=== PATIENT | male | born 1985 | race Caucasian/White ===

== ENCOUNTER 2018-02-17 01:09 | Emergency (ER) | payer MEDICAID ==
[2018-02-17 01:14] VITALS: BP 141/95
--- NOTE | 2018-02-17 01:15 | EDPHY ---
H & P Stated Complaint: L wrist injury Time Seen by Provider: 02/17/18 01:15 HPI/ROS: HPI CHIEF COMPLAINT: Left hand and left wrist pain. HISTORY OF PRESENT ILLNESS: This is a very pleasant 32-year-old male, denies any significant medical history presents emergency room with left wrist pain and left hand pain. Patient states that he drank alcohol this evening had multiple beers he was at his friend's house his friend had a skateboard he got on the skateboard fell off the skateboard landing on his left hand and left wrist. He has pain over the medial aspect of his left wrist specifically over the distal radius. Denies any other areas of trauma. Denies denies neck pain or headache. Past Medical History: Denies significant medical history Past Surgical History: Denies significant surgical history Social History: Alcohol this evening. Denies other illicit drugs. Family History: Noncontributory ROS REVIEW OF SYSTEMS: A comprehensive 10 point review of systems is otherwise negative aside from elements mentioned in the history of present illness. Exam Constitutional nontoxic. triage nursing summary reviewed, vital signs reviewed , awake/alert. Eyes normal conjunctivae and sclera, EOMI, PERRLA. HENT normal inspection, atraumatic, moist mucus membranes, no epistaxis, neck supple/ no meningismus, no raccoon eyes. Respiratory clear to auscultation bilaterally, normal breath sounds, no respiratory distress, no wheezing. Cardiovascular rate normal, regular rhythm, no murmur, no edema, distal pulses normal. Gastrointestinal soft, non-tender, no rebound, no guarding, normal bowel sounds, no distension, no pulsatile mass. Genitourinary no CVA tenderness. Musculoskeletal left hand/left wrist: Neurovascular intact, good radial pulse. Good cap refill, full range of motion, tender palpation over the distal ulanr tender palpation over the dorsum of the left hand specifically over the 5nd metacarpal. swelling noted. Ecchymosis noted, No open injury. Neurovascular intact good elementary school reading teacher strength. Good cap refill, sensation intact. No signs of compartment syndrome. No scaphoid tenderness. no midline vertebral tenderness, full range of motion, no calf swelling, no tenderness of extremities, no meningismus, good pulses, neurovascularly intact. Skin pink, warm, & dry, no rash, skin atraumatic. Neurologic awake, alert and oriented x 3, AAOx3, moves all 4 extremities equally, motor intact, sensory intact, CN II-XII intact, normal cerebellar, normal vision, normal speech. Psychiatric normal mood/affect. Heme/Lymph/Immune no lymphadenopathy. Differential Diagnosis: Includes but is not limited to in a particular order hand contusion, soft tissue injury, bony abnormality, bony contusion, hand fracture, wrist fracture, wrist sprain Medical Decision Making: Plan for this patient ibuprofen 800 mg for pain control, ice pack, x-ray of the hand and wrist. Re-evaluation: X-rays reviewed of the left wrist and left hand. The x-ray of the left hand shows a fracture of the 5th metacarpal. The x-ray of the left wrist does not show any evidence of acute fracture. Patient need to be splinted and follow up with Hand surgery. Patient be splinted in ulnar gutter splint. He will need to follow up with Hand surgery he understands. Ibuprofen for pain control. Ice and elevation. He understands. Return precautions discussed with him. Source: Patient - Personal History Current Tetanus/Diphtheria Vaccine: Unsure Current Tetanus Diphtheria and Acellular Pertussis (TDAP): Unsure - Medical/Surgical History Hx Asthma: No Hx Chronic Respiratory Disease: No Hx Diabetes: No Hx Cardiac Disease: No Hx Renal Disease: No Hx Cirrhosis: No Hx Alcoholism: No Hx HIV/AIDS: No Hx Splenectomy or Spleen Trauma: No Other PMH: appy - Social History Smoking Status: Current every day smoker Constitutional: Initial Vital Signs Temperature (C) 36.9 C 02/17/18 01:12 Heart Rate 101 H 02/17/18 01:12 Respiratory Rate 16 02/17/18 01:12 Blood Pressure 141/95 H 02/17/18 01:12 O2 Sat (%) 93 02/17/18 01:12 O2 Delivery Mode Room Air Allergies/Adverse Reactions: No Known Allergies Allergy (Unverified 11/18/14 13:23) Home Medications: Medication Instructions Recorded No Home Meds 11/18/14 Ibuprofen [Motrin (*)] 800 mg PO Q6-8PRN #10 tab 02/17/18 Medical Decision Making - Data Points Medications Given: Discontinued Medications Ibuprofen (Motrin) 800 mg PO EDNOW ONE Stop: 02/17/18 01:18 Last Admin: 02/17/18 01:26 Dose: 800 mg Departure - Departure Disposition: Home, Routine, Self-Care Clinical Impression: Hand fracture, left Qualifiers: Encounter type: initial encounter Fracture type: closed Qualified Code(s): S62.92XA - Unspecified fracture of left wrist and hand, initial encounter for closed fracture Condition: Good Instructions: Hand Fracture (ED) Additional Instructions: 1. Stay in your splint for comfort. 2. Follow up with orthopedic/hand surgery. 3. Return emergency room if you have any worsening symptoms questions or concerns. Referrals: [facility] DAI [Primary Care Provider] - As per Instructions Henrique Haq MD [Medical Doctor] - As per Instructions Prescriptions: Ibuprofen [Motrin (*)] 800 mg PO Q6-8PRN #10 tab
[2018-02-17] MEDS ORDERED: IBUPROFEN 800 MG TAB PO ONE (01:17)
== END 2018-02-17 02:42 | disposition home or self-care (01) ==
DX: S62.307A Unspecified fracture of fifth metacarpal bone, left hand, initial encounter for closed fracture (principal); F17.200 Nicotine dependence, unspecified, uncomplicated; V00.131A Fall from skateboard, initial encounter; Y99.8 Other external cause status; Y93.51 Activity, roller skating (inline) and skateboarding
CPT/HCPCS: A4565